=== PATIENT | female | born 1960 | race African-American/Black ===

== ENCOUNTER 2017-05-18 10:49 | Emergency (ER) | payer MEDICAID ==
[~2017-05-18] VITALS: Ht 157.5 cm; Wt 53.0 kg
[~2017-05-18 10:49] MED LIST: CYCL5TAB PO; GABA-529 PO; INSU3INS6 SUBCUT; LISI1TAB11 PO; METO-385 PO; PARO-41 PO; SIMV20TA6 PO
[2017-05-18] MEDS ORDERED: LISINOPRIL (11:17)
[2017-05-18] MEDS ORDERED: SODIUM CHLORIDE 0.9% 1,000 ML IV ONE (11:50)
[2017-05-18 12:12] LABS: BASOPHILS % 1.2 % (0.0-2.0); EOSINOPHILS % 1.4 % (0.0-5.0); HEMATOCRIT. 37.1 % (36.0-48.0); HEMOGLOBIN. 11.5 g/dL (12.0-16.0); LYMPHOCYTES % 33.1 % (20.0-50.0); MEAN CORPUSCULAR HEMOGLOBIN 23.1 pg (28.0-32.0); MEAN CORPUSCULAR VOLUME 74.5 fL (81.0-99.0); MEAN PLATELET VOLUME 11.2 fl (7.4-10.4); MONOCYTES % 5.7 % (2.0-8.0); NEUTROPHILS % 58.6 % (40.0-76.0); PLATELET 177 x1000/uL (130-400); RED BLOOD CELL COUNT 4.97 mill/uL (4.2-5.4); RED CELL DISTRIBUTION WIDTH 14.1 % (11.6-14.6)
[2017-05-18 12:17] LABS: PROTHROMBIN TIME 10.4 sec (9.4-11.6)
[2017-05-18 12:27] LABS: CARBON DIOXIDE 30 mEq/L (21-32); CHLORIDE 100 mEq/L (98-107); TROPONIN I < 0.02 ng/mL (0.00-0.04)
[2017-05-18] MEDS ORDERED: GABAPENTIN 300MG CAPSULE PO ONE (13:45)
[2017-05-18] MEDS ORDERED: KETOROLAC 30MG/ML VIAL IV ONE (13:45)
[2017-05-18] MEDS ORDERED: ACETAMINOPHEN WITH CODEINE 300/30MG TABLET PO ONE (15:30)
[2017-05-18 15:55] VITALS: BP 131/82
== END 2017-05-18 16:16 | disposition home or self-care (01) ==
LOC: ER 10:49
DX: E11.40 Type 2 diabetes mellitus with diabetic neuropathy, unspecified (principal); E11.65 Type 2 diabetes mellitus with hyperglycemia; R07.89 Other chest pain; I10 Essential (primary) hypertension; R00.0 Tachycardia, unspecified; R19.7 Diarrhea, unspecified; E78.00 Pure hypercholesterolemia, unspecified; F17.210 Nicotine dependence, cigarettes, uncomplicated; Z85.3 Personal history of malignant neoplasm of breast; Z90.10 Acquired absence of unspecified breast and nipple; Z79.4 Long term (current) use of insulin
CPT/HCPCS: 36415; 71010; 80053; 84484; 85025; 85610; 93005; 96361; 96374; 99285; J1885; J7030; Z7610

== ENCOUNTER 2018-04-20 10:45 | Emergency (ER) | payer MEDICAID ==
[~2018-04-20] VITALS: Ht 157.5 cm; Wt 53.0 kg
[~2018-04-20 10:45] MED LIST changes: +AMA2 PO; +ASPI-1160 PO; +FERR325T23 PO; -INSU3INS6 SUBCUT; +LANTUSUD SUBCUT; +LINA5TAB PO; +METF500T PO
[2018-04-20] MEDS ORDERED: SODIUM CHLORIDE 0.9% 1,000 ML IV ONE (12:02)
[2018-04-20 12:11] LABS: BASOPHILS % 1.3 % (0.0-2.0); EOSINOPHILS % 1.7 % (0.0-5.0); HEMATOCRIT. 36.6 % (36.0-48.0); HEMOGLOBIN. 11.7 g/dL (12.0-16.0); LYMPHOCYTES % 42.6 % (20.0-50.0); MEAN CORPUSCULAR HEMOGLOBIN 23.7 pg (28.0-32.0); MEAN CORPUSCULAR VOLUME 74.1 fL (81.0-99.0); MEAN PLATELET VOLUME 10.5 fl (7.4-10.4); MONOCYTES % 6.3 % (2.0-8.0); NEUTROPHILS % 48.1 % (40.0-76.0); PLATELET 200 x1000/uL (130-400); RED BLOOD CELL COUNT 4.94 mill/uL (4.2-5.4); RED CELL DISTRIBUTION WIDTH 14.4 % (11.6-14.6)
[2018-04-20 12:12] LABS: CLARITY URINE CLEAR (CLEAR); COLOR URINE YELLOW (YELLOW); KETONES URINE NEGATIVE (NEGATIVE); LEUKOCYTE ESTERASE URINE 1+ (NEGATIVE); NITRITE URINE NEGATIVE (NEGATIVE); OCCULT BLOOD URINE NEGATIVE (NEGATIVE); PROTEIN URINE NEGATIVE (NEGATIVE); SPECIFIC GRAVITY URINE 1.016 (1.005-1.030); UROBILINOGEN URINE 0.2 E.U./dL (0.2-1.0)
[2018-04-20 12:19] LABS: CHLORIDE 101 mEq/L (98-107)
[2018-04-20] MEDS ORDERED: GABAPENTIN 300MG CAPSULE PO ONE (13:00)
[2018-04-20] MEDS ORDERED: ASPIRIN 81MG TABLET PO ONE (13:00)
[2018-04-20] MEDS ORDERED: CEFTRIAXONE 2 G PREMIX 50 ML IV ONE (13:15)
[2018-04-20] MEDS ORDERED: INFLUENZA VIRUS VACCINE(AFLURIA) 0.5ML SYR IM ONE (17:00)
[2018-04-20 17:30] VITALS: BP 163/72
== END 2018-04-20 18:08 | disposition home or self-care (01) ==
LOC: ER 10:45
DX: N39.0 Urinary tract infection, site not specified (principal); R07.89 Other chest pain; F17.290 Nicotine dependence, other tobacco product, uncomplicated; E11.9 Type 2 diabetes mellitus without complications; I10 Essential (primary) hypertension; E78.00 Pure hypercholesterolemia, unspecified; Z90.11 Acquired absence of right breast and nipple; Z79.82 Long term (current) use of aspirin; Z79.84 Long term (current) use of oral hypoglycemic drugs; Z79.4 Long term (current) use of insulin; Z79.899 Other long term (current) drug therapy
CPT/HCPCS: 36415; 71045; 80053; 81003; 82962; 83735; 83880; 84484; 85025; 87077; 87086; 87186; 90471; 93005; 96361; 96365; 99285; 99406; J0696; J7030; 90686; 96372

== ENCOUNTER 2018-06-15 18:42 | Emergency (ER) | payer MEDICAID ==
[~2018-06-15] VITALS: Ht 172.7 cm; Wt 66.0 kg
[2018-06-15 18:52] VITALS: BP 174/83
== END 2018-06-15 19:57 | disposition left against medical advice (07) ==
LOC: ER 18:42
DX: R07.9 Chest pain, unspecified (principal); Z53.21 Procedure and treatment not carried out due to patient leaving prior to being seen by health care provider

== ENCOUNTER 2018-12-22 14:22 | Inpatient (IN) | payer BC, MEDICAID ==
[~2018-12-22] VITALS: Ht 157.5 cm; Wt 54.4 kg
[2018-12-22] MEDS ORDERED: MORPHINE SULFATE 4 MG/ML CPJ (NOT FOR IM USE) IV STA (16:20)
[2018-12-22] MEDS ORDERED: ONDANSETRON HCL 4MG/2ML INJ IV STA (16:20)
[2018-12-22] MEDS ORDERED: NITROGLYCERIN OINT 1GM/INCH UDPKT TD ONE (16:30)
[2018-12-22] MEDS ORDERED: ASPIRIN 81MG TABLET PO ONE (16:30)
[2018-12-22 17:00] LABS: BASOPHILS % 1.8 % (0.0-2.0); EOSINOPHILS % 2.2 % (0.0-5.0); HEMATOCRIT. 35.3 % (36.0-48.0); HEMOGLOBIN. 11.3 g/dL (12.0-16.0); LYMPHOCYTES % 38.7 % (20.0-50.0); MEAN CORPUSCULAR HEMOGLOBIN 23.6 pg (28.0-32.0); MEAN PLATELET VOLUME 11.5 fl (7.4-10.4); MONOCYTES % 7.2 % (2.0-8.0); NEUTROPHILS % 50.1 % (40.0-76.0); PLATELET 223 x1000/uL (130-400); RED BLOOD CELL COUNT 4.77 mill/uL (4.2-5.4); RED CELL DISTRIBUTION WIDTH 14.8 % (11.6-14.6)
[2018-12-22 17:30] LABS: CHLORIDE 99 mEq/L (98-107)
[2018-12-22] MEDS ORDERED: SODIUM CHLORIDE 0.9% 1,000 ML IV ONE (18:05)
[2018-12-22] MEDS ORDERED: INSULIN REGULAR (HUMULIN R) 300UNITS/3ML IV ONE (18:15)
[2018-12-22 22:45] VITALS: BP 124/65
[2018-12-22] MEDS ORDERED: ACETAMINOPHEN 325MG TABLET PO PRN (23:30)
[2018-12-22] MEDS ORDERED: DEXTROSE 50% WATER 50ML SYRINGE IV PRN (23:30)
[2018-12-23] VITALS: BP 124/65
[2018-12-23] MEDS: HYDROCODONE/ACETAMINOPHEN 5/325MG TABLET PO PRN ×3 (01:43→22:59)
[2018-12-23 04:00] VITALS: BP 115/63
[2018-12-23] MEDS: BLOOD SUGAR DIAGNOSTIC STRIP TEST SCH ×4 (06:22→20:20)
[2018-12-23] MEDS: PANTOPRAZOLE 40MG DR TABLET PO SCH (06:24)
[2018-12-23] MEDS: INSULIN LISPRO 100 UNITS/ML SUBCUT SCH ×4 (06:27→20:27)
[2018-12-23] MEDS ORDERED: INSULIN LISPRO 100 UNITS/ML SUBCUT SCH (06:45)
[2018-12-23 08:00] VITALS: BP 121/69
[2018-12-23] MEDS: ASPIRIN 81MG TABLET PO SCH (08:57)
[2018-12-23] MEDS: METOPROLOL TARTRATE 50MG TABLET PO SCH ×2 (08:57→20:26)
[2018-12-23] MEDS: ENOXAPARIN 40MG/0.4ML SYR SUBCUT SCH (08:58)
[2018-12-23 09:26] LABS: BASOPHILS % 0.7 % (0.0-2.0); HEMATOCRIT. 32.2 % (36.0-48.0); LYMPHOCYTES % 37.5 % (20.0-50.0); MEAN CORPUSCULAR HEMOGLOBIN 23.3 pg (28.0-32.0); MEAN CORPUSCULAR VOLUME 74.9 fL (81.0-99.0); MEAN PLATELET VOLUME 11.3 fl (7.4-10.4); MONOCYTES % 7.3 % (2.0-8.0); NEUTROPHILS % 52.5 % (40.0-76.0); PLATELET 172 x1000/uL (130-400); RED CELL DISTRIBUTION WIDTH 14.5 % (11.6-14.6)
[2018-12-23 09:35] LABS: CHLORIDE 105 mEq/L (98-107)
[2018-12-23] MEDS ORDERED: POTASSIUM CHLORIDE INJ 40 MEQ in DEXT 5% WATER 250 ML IV ONE (11:30)
[2018-12-23 12:00] VITALS: BP 105/58
[2018-12-23 16:00] VITALS: BP 140/71
[2018-12-23 17:03] LABS: D-DIMER < 0.19 mg/L FEU (<0.50)
[2018-12-23 17:11] LABS: LDL CHOLESTEROL 82 mg/dL (5-100)
[2018-12-23 17:13] LABS: HDL CHOLESTEROL 50 mg/dL (40-59); T4 FREE 0.97 ng/dL (0.76-1.46)
[2018-12-23 20:00] VITALS: BP 132/70
[2018-12-23] MEDS: MORPHINE SULFATE 2 MG/ML CPJ (NOT FOR IM USE) IV PRN (20:26)
[2018-12-24] VITALS: BP 148/71
[2018-12-24 00:47] LABS: CLARITY URINE CLEAR (CLEAR); COLOR URINE YELLOW (YELLOW); KETONES URINE TRACE (NEGATIVE); LEUKOCYTE ESTERASE URINE TRACE (NEGATIVE); NITRITE URINE NEGATIVE (NEGATIVE); OCCULT BLOOD URINE NEGATIVE (NEGATIVE); PROTEIN URINE NEGATIVE (NEGATIVE); SPECIFIC GRAVITY URINE 1.036 (1.005-1.030); UROBILINOGEN URINE 0.2 E.U./dL (0.2-1.0)
[2018-12-24 04:00] VITALS: BP 129/65
[2018-12-24] MEDS: BLOOD SUGAR DIAGNOSTIC STRIP TEST SCH ×2 (05:53→11:48)
[2018-12-24] MEDS: PANTOPRAZOLE 40MG DR TABLET PO SCH (06:15)
[2018-12-24] MEDS: INSULIN LISPRO 100 UNITS/ML SUBCUT SCH ×2 (06:16→12:50)
[2018-12-24 08:42] LABS: HEMATOCRIT 35.7 % (36.0-48.0); MEAN CORPUSCULAR HEMOGLOBIN 23.3 pg (28.0-32.0); MEAN CORPUSCULAR VOLUME 75.4 fL (81.0-99.0); PLATELET 184 x1000/uL (130-400); RED BLOOD CELL COUNT 4.73 mill/uL (4.2-5.4); RED CELL DISTRIBUTION WIDTH 14.9 % (11.6-14.6)
[2018-12-24 09:03] LABS: CHLORIDE 104 mEq/L (98-107)
[2018-12-24] MEDS ORDERED: REGADENOSON 0.4 MG/5 ML IV NR (09:30)
[2018-12-24] MEDS: ASPIRIN 81MG TABLET PO SCH (09:41)
[2018-12-24] MEDS: METOPROLOL TARTRATE 50MG TABLET PO SCH (09:42)
[2018-12-24] MEDS: ENOXAPARIN 40MG/0.4ML SYR SUBCUT SCH (09:43)
[2018-12-24] MEDS: MORPHINE SULFATE 2 MG/ML CPJ (NOT FOR IM USE) IV PRN (09:44)
[2018-12-24 09:55] LABS: T4 FREE 0.9 ng/dL (0.76-1.46)
[2018-12-24] MEDS ORDERED: REGADENOSON 0.4 MG/5 ML IV ONE (10:01)
[2018-12-24 11:46] VITALS: BP_SYST 135
[2018-12-24] MEDS: HYDROCODONE/ACETAMINOPHEN 5/325MG TABLET PO PRN (11:47)
[2018-12-24] MEDS ORDERED: INSULIN GLARGINE UD 100 UNITS/ML SYR SUBCUT SCH (13:00)
[2018-12-24 13:21] VITALS: BP 135/69
[2018-12-25] MEDS ORDERED: ASPIRIN 81MG TABLET PO SCH (09:00)
== END 2018-12-24 13:54 | disposition home or self-care (01) | DRG 175 ==
LOC: ER 14:22 → 5WST 18:08 → EDBEDREQ 18:27 → ENRESERV 21:51
PROVIDERS: ADMIT Internal Medicine; ATTEND Internal Medicine
DX: I26.99 Other pulmonary embolism without acute cor pulmonale (principal); J18.9 Pneumonia, unspecified organism; D68.59 Other primary thrombophilia; R07.89 Other chest pain; R07.9 Chest pain, unspecified; D64.9 Anemia, unspecified; E11.65 Type 2 diabetes mellitus with hyperglycemia; E78.00 Pure hypercholesterolemia, unspecified; E78.5 Hyperlipidemia, unspecified; E86.0 Dehydration; E87.6 Hypokalemia; F17.200 Nicotine dependence, unspecified, uncomplicated; I10 Essential (primary) hypertension; Z90.10 Acquired absence of unspecified breast and nipple; Z85.3 Personal history of malignant neoplasm of breast; Z79.82 Long term (current) use of aspirin; Z79.4 Long term (current) use of insulin; Z79.84 Long term (current) use of oral hypoglycemic drugs; Z79.899 Other long term (current) drug therapy
CPT/HCPCS: 36415; 71045; 78452; 80048; 80061; 80076; 82962; 83036; 83880; 84439; 84443; 84484; 85027; 85379; 93005; 93017; 93306; 93970; A9500; J1650; J1815; J2270; J2405; J2785; J3480; J7030; J7050; J7060

== ENCOUNTER 2019-04-18 10:45 | Emergency (ER) | payer BC, MEDICAID ==
[~2019-04-18] VITALS: Ht 157.5 cm; Wt 60.0 kg
[2019-04-18] MEDS ORDERED: ACETAMINOPHEN 500MG TABLET PO ONE (11:30)
[2019-04-18] MEDS ORDERED: SODIUM CHLORIDE 0.9% 1000ML BAG (SEPSIS BOLUS) IV ONE (11:30)
[2019-04-18] MEDS ORDERED: ASPIRIN 81MG TABLET PO ONE (11:30)
[2019-04-18 11:37] LABS: BASOPHILS % 1.2 % (0.0-2.0); EOSINOPHILS % 4.9 % (0.0-5.0); HEMATOCRIT. 38.7 % (36.0-48.0); HEMOGLOBIN. 12.2 g/dL (12.0-16.0); LYMPHOCYTES % 27.2 % (20.0-50.0); MEAN PLATELET VOLUME 11.7 fl (7.4-10.4); MONOCYTES % 5.4 % (2.0-8.0); NEUTROPHILS % 61.3 % (40.0-76.0); PLATELET 135 x1000/uL (130-400); RED CELL DISTRIBUTION WIDTH 14.2 % (11.6-14.6)
[2019-04-18 11:43] LABS: CHLORIDE 97 mEq/L (98-107)
[2019-04-18 13:28] LABS: CLARITY URINE CLEAR (CLEAR); COLOR URINE YELLOW (YELLOW); KETONES URINE 1+ (NEGATIVE); LEUKOCYTE ESTERASE URINE NEGATIVE (NEGATIVE); NITRITE URINE POSITIVE (NEGATIVE); OCCULT BLOOD URINE NEGATIVE (NEGATIVE); PH URINE 5.5 (4.5-8.0); PROTEIN URINE NEGATIVE (NEGATIVE); SPECIFIC GRAVITY URINE 1.035 (1.005-1.030); UROBILINOGEN URINE 0.2 E.U./dL (0.2-1.0)
[2019-04-18] MEDS ORDERED: CEPHALEXIN 250MG CAPSULE PO NR (14:00)
[2019-04-18] MEDS ORDERED: INSULIN REGULAR (HUMULIN R) 300UNITS/3ML SUBCUT NR (14:00)
[2019-04-18 14:20] VITALS: BP 116/62
== END 2019-04-18 14:26 | disposition home or self-care (01) ==
LOC: ER 10:45
DX: E11.65 Type 2 diabetes mellitus with hyperglycemia (principal); N39.0 Urinary tract infection, site not specified; R07.89 Other chest pain; I10 Essential (primary) hypertension; E78.00 Pure hypercholesterolemia, unspecified; Z85.9 Personal history of malignant neoplasm, unspecified; Z90.10 Acquired absence of unspecified breast and nipple; Z79.4 Long term (current) use of insulin; Z79.82 Long term (current) use of aspirin
CPT/HCPCS: 36415; 71045; 80053; 81003; 84484; 85025; 93005; 96360; 96372; 99284; J1815; J7030; Z7610

== ENCOUNTER 2020-05-18 09:05 | Inpatient (IN) | payer BC, MEDICAID ==
[2020-05-18] VITALS: BP 104/53
[~2020-05-18] VITALS: Ht 156.2 cm; Wt 53.1 kg
[~2020-05-18 09:05] MED LIST changes: +SIMV-43 PO; -SIMV20TA6 PO
[2020-05-18] MEDS ORDERED: ASPIRIN 81MG TABLET PO ONE (10:00)
[2020-05-18] MEDS ORDERED: NITROGLYCERIN 0.4MG TABLET SL SL PRN (10:00)
[2020-05-18 10:23] LABS: BASOPHILS % 0.8 % (0.0-2.0); HEMATOCRIT. 38.6 % (36.0-48.0); HEMOGLOBIN. 12.2 g/dL (12.0-16.0); LYMPHOCYTES % 33.4 % (20.0-50.0); MEAN CORPUSCULAR HEMOGLOBIN 23.6 pg (28.0-32.0); MEAN CORPUSCULAR VOLUME 74.8 fL (81.0-99.0); MEAN PLATELET VOLUME 11.1 fl (7.4-10.4); MONOCYTES % 7.9 % (2.0-8.0); NEUTROPHILS % 55.9 % (40.0-76.0); PLATELET 169 x1000/uL (130-400); RED BLOOD CELL COUNT 5.16 mill/uL (4.2-5.4); RED CELL DISTRIBUTION WIDTH 14.3 % (11.6-14.6)
[2020-05-18 10:30] LABS: CHLORIDE 96 mEq/L (98-107)
[2020-05-18 10:35] LABS: ETHANOL BLOOD < 10 mg/dL
[2020-05-18] MEDS ORDERED: SODIUM CHLORIDE 0.9% 1,000 ML IV ONE (11:15)
[2020-05-18] MEDS ORDERED: INSULIN REGULAR (HUMULIN R) 300UNITS/3ML VIAL SUBCUT ONE (11:15)
[2020-05-18] MEDS ORDERED: IOHEXOL-350 100 ML BOTTLE ONE ×2 (15:45→17:19)
[2020-05-18] MEDS: METOPROLOL TARTRATE 25MG TABLET PO SCH ×2 (16:30→23:32)
[2020-05-18] MEDS ORDERED: CLONIDINE 0.1MG TABLET PO PRN (19:15)
[2020-05-18] MEDS ORDERED: IPRATROPIUM/ALBUTEROL 0.5-3(2.5)MG/3ML NEB HHN PRN (19:15)
[2020-05-18] MEDS ORDERED: ACETAMINOPHEN 325MG TABLET PO PRN (19:15)
[2020-05-18] MEDS ORDERED: ONDANSETRON HCL 4MG/2ML INJ IV PRN (19:15)
[2020-05-18] MEDS ORDERED: CYCLOBENZAPRINE 10MG TABLET PO PRN (19:30)
[2020-05-18] MEDS ORDERED: GABAPENTIN 300MG CAPSULE PO SCH (19:30)
[2020-05-18] MEDS: HYDROCODONE/ACETAMINOPHEN 5/325MG TABLET PO PRN (21:19)
[2020-05-18] MEDS: ATORVASTATIN CALCIUM 20MG TABLET PO SCH (21:20)
[2020-05-18] MEDS ORDERED: INSULIN GLARGINE UD 100 UNITS/ML SYR SUBCUT SCH (22:00)
[2020-05-18 22:20] VITALS: BP 124/70
[2020-05-18 23:25] VITALS: BP 124/70
[2020-05-19] VITALS: BP 104/53
[2020-05-19] MEDS ORDERED: DEXTROSE 50% WATER 50ML SYRINGE IV PRN (00:30)
[2020-05-19] MEDS: INSULIN GLARGINE UD 100 UNITS/ML SYR SUBCUT SCH ×2 (00:31→22:05)
[2020-05-19] MEDS: LORAZEPAM 0.5MG TABLET PO PRN (00:42)
[2020-05-19] MEDS ORDERED: INSULIN LISPRO 100 UNITS/ML SUBCUT SCH (02:15)
[2020-05-19] MEDS: HYDROCODONE/ACETAMINOPHEN 5/325MG TABLET PO PRN ×2 (02:25→14:26)
[2020-05-19] MEDS: INSULIN LISPRO 100 UNITS/ML SUBCUT SCH ×4 (02:27→21:42)
[2020-05-19 03:50] LABS: *BARBITURATES SCREEN URINE NEGATIVE (NEGATIVE); *BENZODIAZEPINES SCREEN URINE NEGATIVE (NEGATIVE); *COCAINE SCREEN URINE NEGATIVE (NEGATIVE); METHADONE URINE SCREEN NEGATIVE (NEGATIVE); OPIATES URINE SCREEN NEGATIVE (NEGATIVE); PHENCYCLIDINE URINE SCREEN NEGATIVE (NEGATIVE)
[2020-05-19 03:51] LABS: *AMPHETAMINES SCREEN URINE NEGATIVE (NEGATIVE); CANNABINOID URINE SCREEN PRESUMTIVE POSITIVE (NEGATIVE)
[2020-05-19 04:00] VITALS: BP 91/50
[2020-05-19] MEDS ORDERED: GABA-290 PO (04:07)
[2020-05-19] MEDS ORDERED: MEDICATION NOT ON FORMULARY EA (Gabapentin 1,200 MG) PO PRN (04:15)
[2020-05-19] MEDS ORDERED: ATOR20TA65 PO (04:16)
[2020-05-19] MEDS ORDERED: GABAPENTIN 400MG CAPSULE PO PRN (04:45)
[2020-05-19] MEDS ORDERED: INFLUENZA VACCINE 05/PF 0.5 ML VIAL IM ONE (06:00)
[2020-05-19] MEDS: BLOOD SUGAR DIAGNOSTIC STRIP TEST SCH ×4 (06:42→21:43)
[2020-05-19 07:02] LABS: BASOPHILS % 0.5 % (0.0-2.0); HEMATOCRIT. 32.1 % (36.0-48.0); HEMOGLOBIN. 10.2 g/dL (12.0-16.0); LYMPHOCYTES % 49.4 % (20.0-50.0); MEAN CORPUSCULAR HEMOGLOBIN 23.5 pg (28.0-32.0); MEAN CORPUSCULAR VOLUME 74.1 fL (81.0-99.0); MEAN PLATELET VOLUME 11.3 fl (7.4-10.4); MONOCYTES % 8.2 % (2.0-8.0); NEUTROPHILS % 39.9 % (40.0-76.0); PLATELET 152 x1000/uL (130-400); RED BLOOD CELL COUNT 4.33 mill/uL (4.2-5.4); RED CELL DISTRIBUTION WIDTH 14.8 % (11.6-14.6)
[2020-05-19 07:07] LABS: CHLORIDE 102 mEq/L (98-107)
[2020-05-19 07:12] LABS: PHOSPHORUS 2.9 mg/dL (2.5-4.9)
[2020-05-19 08:40] VITALS: BP 126/67
[2020-05-19] MEDS: METOPROLOL TARTRATE 25MG TABLET PO SCH ×2 (09:18→21:00)
[2020-05-19] MEDS: ASPIRIN 81MG EC TABLET PO SCH (09:21)
[2020-05-19] MEDS: LINAGLIPTIN 5MG TABLET PO SCH (09:21)
[2020-05-19] MEDS: GABAPENTIN 400MG CAPSULE PO SCH ×3 (09:23→18:20)
[2020-05-19] MEDS: PAROXETINE HCL 10MG TABLET PO SCH (09:24)
[2020-05-19] MEDS: GLIMEPIRIDE 2MG TABLET PO SCH ×2 (10:03→18:20)
[2020-05-19 12:00] VITALS: BP 96/54
[2020-05-19] MEDS ORDERED: LANTUSUD SUBCUT (14:08)
[2020-05-19 16:16] VITALS: BP 99/47
[2020-05-19 20:00] VITALS: BP 92/51
[2020-05-19] MEDS: ATORVASTATIN CALCIUM 20MG TABLET PO SCH (21:42)
[2020-05-20] VITALS (7 sets, daily range): BP systolic 98–138; BP diastolic 41–63
[2020-05-20] MEDS: HYDROCODONE/ACETAMINOPHEN 5/325MG TABLET PO PRN ×4 (04:25→20:35)
[2020-05-20 06:23] LABS: TOTAL IRON BINDING CAPACITY 296 ug/dL (250-450)
[2020-05-20] MEDS: BLOOD SUGAR DIAGNOSTIC STRIP TEST SCH ×4 (06:36→20:50)
[2020-05-20] MEDS: GLIMEPIRIDE 2MG TABLET PO SCH ×2 (08:20→17:37)
[2020-05-20] MEDS: ASPIRIN 81MG EC TABLET PO SCH (08:33)
[2020-05-20] MEDS: METOPROLOL TARTRATE 25MG TABLET PO SCH ×3 (08:33→20:47)
[2020-05-20] MEDS: PAROXETINE HCL 10MG TABLET PO SCH (08:34)
[2020-05-20] MEDS: GABAPENTIN 400MG CAPSULE PO SCH ×3 (08:34→17:37)
[2020-05-20] MEDS: INSULIN LISPRO 100 UNITS/ML SUBCUT SCH ×4 (08:43→21:11)
[2020-05-20] MEDS: LINAGLIPTIN 5MG TABLET PO SCH (09:00)
[2020-05-20] MEDS ORDERED: REGADENOSON 0.4 MG/5 ML IV NR (09:30)
[2020-05-20] MEDS: IRON SUCROSE COMPLEX 100 MG/5 ML ML IV SCH (17:31)
[2020-05-20] MEDS: ATORVASTATIN CALCIUM 20MG TABLET PO SCH (20:36)
[2020-05-20] MEDS: LORAZEPAM 0.5MG TABLET PO PRN (21:11)
[2020-05-20] MEDS: INSULIN GLARGINE UD 100 UNITS/ML SYR SUBCUT SCH (22:49)
[2020-05-21] VITALS: BP 107/58
[2020-05-21 04:00] VITALS: BP 108/52
[2020-05-21] MEDS: BLOOD SUGAR DIAGNOSTIC STRIP TEST SCH ×4 (05:05→20:06)
[2020-05-21] MEDS: INSULIN LISPRO 100 UNITS/ML SUBCUT SCH ×4 (05:23→22:40)
[2020-05-21 06:06] LABS: BASOPHILS % 0.8 % (0.0-2.0); EOSINOPHILS % 2.3 % (0.0-5.0); HEMATOCRIT. 30.6 % (36.0-48.0); HEMOGLOBIN. 9.6 g/dL (12.0-16.0); LYMPHOCYTES % 40.8 % (20.0-50.0); MEAN CORPUSCULAR HEMOGLOBIN 23.4 pg (28.0-32.0); MEAN CORPUSCULAR VOLUME 74.3 fL (81.0-99.0); MEAN PLATELET VOLUME 11.7 fl (7.4-10.4); MONOCYTES % 9.6 % (2.0-8.0); NEUTROPHILS % 46.5 % (40.0-76.0); PLATELET 133 x1000/uL (130-400); RED BLOOD CELL COUNT 4.11 mill/uL (4.2-5.4)
[2020-05-21 06:13] LABS: CHLORIDE 107 mEq/L (98-107)
[2020-05-21 06:16] LABS: PHOSPHORUS 2.2 mg/dL (2.5-4.9)
[2020-05-21] MEDS: HYDROCODONE/ACETAMINOPHEN 5/325MG TABLET PO PRN ×3 (07:47→22:38)
[2020-05-21 08:00] VITALS: BP 117/63
[2020-05-21] MEDS: ASPIRIN 81MG EC TABLET PO SCH (10:05)
[2020-05-21] MEDS: GABAPENTIN 400MG CAPSULE PO SCH ×3 (10:05→19:00)
[2020-05-21] MEDS: DOCUSATE SODIUM 100MG CAPSULE PO PRN ×2 (10:05→16:39)
[2020-05-21] MEDS: METOPROLOL TARTRATE 25MG TABLET PO SCH ×2 (10:06→22:38)
[2020-05-21] MEDS: GLIMEPIRIDE 2MG TABLET PO SCH ×2 (10:06→16:39)
[2020-05-21] MEDS: PAROXETINE HCL 10MG TABLET PO SCH (10:07)
[2020-05-21 12:00] VITALS: BP 106/52
[2020-05-21] MEDS: LINAGLIPTIN 5MG TABLET PO SCH (12:14)
[2020-05-21] MEDS ORDERED: IRON SUCROSE COMPLEX 100 MG/5 ML ML IV SCH (15:30)
[2020-05-21 16:00] VITALS: BP 116/63
[2020-05-21] MEDS: IRON SUCROSE COMPLEX 100 MG/5 ML ML IV SCH (16:17)
[2020-05-21] MEDS ORDERED: IRON SUCROSE COMPLEX 100 MG/5 ML ML IV NR (16:30)
[2020-05-21 20:00] VITALS: BP 124/63
[2020-05-21] MEDS: ATORVASTATIN CALCIUM 20MG TABLET PO SCH (22:38)
[2020-05-21] MEDS: INSULIN GLARGINE UD 100 UNITS/ML SYR SUBCUT SCH (22:44)
[2020-05-22 04:00] VITALS: BP 106/59
[2020-05-22] MEDS: HYDROCODONE/ACETAMINOPHEN 5/325MG TABLET PO PRN ×2 (05:36→09:29)
[2020-05-22] MEDS: BLOOD SUGAR DIAGNOSTIC STRIP TEST SCH (05:41)
[2020-05-22] MEDS: INSULIN LISPRO 100 UNITS/ML SUBCUT SCH (08:36)
[2020-05-22] MEDS: GABAPENTIN 400MG CAPSULE PO SCH (08:38)
[2020-05-22] MEDS: METOPROLOL TARTRATE 25MG TABLET PO SCH (08:38)
[2020-05-22] MEDS: GLIMEPIRIDE 2MG TABLET PO SCH (08:38)
[2020-05-22] MEDS: PAROXETINE HCL 10MG TABLET PO SCH (08:38)
[2020-05-22] MEDS: ASPIRIN 81MG EC TABLET PO SCH (08:38)
[2020-05-22] MEDS: LINAGLIPTIN 5MG TABLET PO SCH (08:40)
[2020-05-22] MEDS ORDERED: IRON SUCROSE COMPLEX 100 MG/5 ML ML IV SCH (09:00)
[2020-05-22 09:32] VITALS: BP 150/68
== END 2020-05-22 10:58 | disposition home or self-care (01) | DRG 203 ==
LOC: ER 09:05 → EDBEDREQTM 11:24 → EDBEDREQ 11:24 → 6WST 12:01 → EDBEDREQ 12:08 → EDBEDREQTM 12:08 → ENRESERV 21:26
PROVIDERS: ADMIT Internal Medicine; ATTEND Internal Medicine
DX: M94.0 Chondrocostal junction syndrome [Tietze] (principal); E11.65 Type 2 diabetes mellitus with hyperglycemia; D68.59 Other primary thrombophilia; E78.00 Pure hypercholesterolemia, unspecified; E78.5 Hyperlipidemia, unspecified; D50.9 Iron deficiency anemia, unspecified; I11.9 Hypertensive heart disease without heart failure; E87.6 Hypokalemia; J45.909 Unspecified asthma, uncomplicated; R94.31 Abnormal electrocardiogram [ECG] [EKG]; K76.0 Fatty (change of) liver, not elsewhere classified; Z79.4 Long term (current) use of insulin; Z79.899 Other long term (current) drug therapy; Z79.82 Long term (current) use of aspirin; Z90.10 Acquired absence of unspecified breast and nipple; Z85.3 Personal history of malignant neoplasm of breast; B34.9 Viral infection, unspecified
CPT/HCPCS: 36415; 71045; 71275; 80048; 80053; 80305; 80320; 82330; 82728; 82962; 83036; 83540; 83550; 83735; 83880; 84100; 84484; 85025; 90686; 93005; 93306; 93970; 96372; 97162; 99291; J1815; J7030; Q9967; G0480

== ENCOUNTER 2021-10-21 16:49 | Emergency (ER) | payer MEDICAID ==
[~2021-10-21] VITALS: Ht 157.5 cm; Wt 59.0 kg
[~2021-10-21 16:49] MED LIST changes: +ATOR20TA65 PO; -CYCL5TAB PO; -FERR325T23 PO; +GABA-290 PO; -GABA-529 PO; -PARO-41 PO; -SIMV-43 PO
[2021-10-21 16:59] VITALS: BP 88/49
[2021-10-21] MEDS ORDERED: MORPHINE SULFATE 4 MG/ML CPJ (NOT FOR IM USE) IV STA (17:24)
[2021-10-21] MEDS ORDERED: ONDANSETRON HCL 4MG/2ML INJ IV STA (17:24)
[2021-10-21] MEDS ORDERED: SODIUM CHLORIDE 0.9% 1,000 ML IV ONE (17:30)
== END 2021-10-21 21:18 | disposition left against medical advice (07) ==
LOC: ER 16:49
DX: R07.89 Other chest pain (principal); R10.9 Unspecified abdominal pain; G89.11 Acute pain due to trauma; R94.31 Abnormal electrocardiogram [ECG] [EKG]; V49.59XA Passenger injured in collision with other motor vehicles in traffic accident, initial encounter; Y93.89 Activity, other specified; Y92.488 Other paved roadways as the place of occurrence of the external cause
CPT/HCPCS: 71045; 93005; 99283; J7030; 99281